=== PATIENT | female | born 1980 | race Caucasian/White ===

== ENCOUNTER 2018-06-03 11:12 | Inpatient (IN) | payer BC ==
[~2018-06-03] VITALS: Ht 175.3 cm; Wt 82.7 kg
[2018-09-09] VITALS (31 sets, daily range): BP systolic 96–135; BP diastolic 53–86; PULSE 42–78; TEMP 98.1–98.4
[2018-09-09] MEDS ORDERED: VALTREX 50500 MG/TAB PO (06:32)
[2018-09-09] MEDS ORDERED: PRENATAL (06:32)
--- NOTE | 2018-09-09 08:39 | NUR ---
0763 PATIENT HERE FOR INDUCTION OF LABOR. ASSESSMENT COMPLETED. EFM ON FHT 125 BABY VERY ACTIVE. OCC IRREGULAR CONTRACTIONS NOTED, PALPATE MILD. CONSENTS SIGNED AT THIS TIME. IV STARTED IN LEFT WRIST LR HUNG.
[2018-09-09 08:56] LABS: BASO % 0.3 % (0.0-2.0); EOS # 0.1 (0.0-0.7); EOS % 0.6 % (0-4.0); GRAN # 7.3 (1.4-6.5); GRAN % 76.1 % (42.2-75.2); HEMATOCRIT 39.9 % (37.0-47.0); HEMOGLOBIN 13.4 g/dl (12.5-16.0); LYMPH # 1.5 (1.2-3.4); LYMPH % 15.3 % (20.0-51.0); MEAN CELL VOLUME 93 fl (80.0-100.0); MEAN CORPUSCULAR HEMOGLOBIN 31 pg (27.0-31.0); MEAN CORPUSCULAR HGB CONC 34 g/dl (33.0-37.0); MEAN PLATELET VOLUME 11.2 fl (7.4-10.4); MONO # 0.6 (0.1-0.6); MONO % 6.2 % (1.7-9.3); PLATELET COUNT 188 K/mm3 (130-400); REDCELL DISTRIBUTION WIDTH-CV 12.7 % (11.5-14.5)
--- NOTE | 2018-09-09 12:28 | NUR ---
1215 PATIENT SITS UP FOR EPIDURAL. Sharon KWONG POWDER CUTTING OPERATOR AT BEDSIDE. EPIDURAL PLACED. PATIENT TOLERATES WELL. SEE Sharon KWONG CRNA NOTES FOR QUESTIONS.
--- NOTE | 2018-09-09 13:33 | NUR ---
1250 PATIENT FEELING PRESSURE. SVE 10/100/+1 DR QUEVEDO AT BEDSIDE FOR DELIVERY. PATIENT WILL PUSH WITH CONTRACTIONS. 1300 BABY BOY BORN VIA NUCHAL TIMES 1. CORD CLAMPED AND CUT BY DR. BABY TO MOMS CHEST. STRONG CRY NOTED. 1303 PLACENTA DLEIVERED AND PITOCIN STARTED AT 333/HR PER PROTOCOL. FUNDUS FIRM AND MINIMAL BLEEDING NOTED. REPAIR DONE BY DR QUEVEDO. PATIENT TOLERATES WELL.
[2018-09-10 08:09] VITALS: BP 113/69; PULSE 58; TEMP 98.1
--- NOTE | 2018-09-10 10:19 | NUR ---
Family was present, I congratulated the family and left.
[2018-09-10 11:15] VITALS: BP 101/72; PULSE 85
[2018-09-10] MEDS ORDERED: IBU800 M1 PO (11:23)
[2018-09-10 16:33] VITALS: BP 101/71; PULSE 59; TEMP 98.7
[2018-09-10 21:00] VITALS: BP 98/60; PULSE 58; TEMP 97.7
[2018-09-11 07:27] VITALS: BP 99/73; PULSE 99; TEMP 97.5
== END 2018-09-11 10:50 | disposition home or self-care (01) | DRG 807 ==
LOC: LDR 09-09 06:48 → OB 09-09 16:08 → EDSTATUS 09-18 06:48 → LDRO 09-18 11:12
PROVIDERS: ADMIT Student in an Organized Health Care Education/Training Program
PROC: 10E0XZZ Delivery of Products of Conception, External Approach (ICD-10-PCS; principal; 2018-09-09)
PROC: 3E033VJ Introduction of Other Hormone into Peripheral Vein, Percutaneous Approach (ICD-10-PCS; 2018-09-09)
PROC: 0HQ9XZZ Repair Perineum Skin, External Approach (ICD-10-PCS; 2018-09-09)
DX: O75.89 Other specified complications of labor and delivery (principal); Z37.0 Single live birth; O70.0 First degree perineal laceration during delivery; Z3A.39 39 weeks gestation of pregnancy; O69.89X0 Labor and delivery complicated by other cord complications, not applicable or unspecified
CPT/HCPCS: J2590; J2795; J7120

== ENCOUNTER → 2021-07-11 | Outpatient (CLI) | payer BC ==
[~2021-07-11] MED LIST: IBU800 M1 PO; PRENATAL; VALTREX 50500 MG/TAB PO
== END ==
LOC: MC.RAD 05-30 10:00
DX: Z12.31 Encounter for screening mammogram for malignant neoplasm of breast (principal)

== ENCOUNTER → 2023-12-31 | Outpatient (CLI) | payer BC | LOC: MC.RAD 08:00 | DX: R92.8 Other abnormal and inconclusive findings on diagnostic imaging of breast (principal) ==

== ENCOUNTER → 2024-07-03 | Outpatient (CLI) | payer BC | LOC: MC.RAD 08:00 | DX: N60.02 Solitary cyst of left breast (principal); N60.01 Solitary cyst of right breast ==